=== PATIENT | female | born 1990 | race Caucasian/White ===

== ENCOUNTER 2017-08-26 06:36 | Inpatient (IN) | payer OTHER ==
[2017-08-26] MEDS ORDERED: LACTATED RINGERS 1,000 ML ONE (07:25)
[2017-08-26] MEDS ORDERED: XYLOCAINE 2% INFILTRATI ONE ×3 (07:35→12:42)
[2017-08-26] MEDS ORDERED: ePHEDrine SULFATE IV PRN (07:35)
[2017-08-26] MEDS ORDERED: PITOCin/NS 20 UNIT/1000ML DRIP 20,000 MILLIUNITS/1,000 ML BAG IV ONE (07:36)
[2017-08-26] MEDS ORDERED: LACTATED RINGERS 1,000 ML IV SCH (08:00)
[2017-08-26] MEDS ORDERED: PITOCin/NS 20 UNIT/1000ML DRIP 20 UNITS/1,000 ML BAG IV SCH (08:00)
--- NOTE | 2017-08-26 08:09 | History and Physical Report ---
History of Present Illness Date of examination: 08/26/17 Date of admission: 08/26/17 06:53 Chief complaint: Labor History of present illness: 27 year old presents to L&D in active labor at term. Patient denies leaking of fluid or vaginal bleeding. Patient reports active movement. 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 denies: smoking, alcohol abuse, prescription drug abuse, IV drug use - Obstetrical History Expected Date of Delivery: 08/31/17 Actual Gestation: 39 Week(s) 2 Day(s) : 2 Para: 1 Hx # Term Pregnancies: 1 Number of Pregnancies: 0 Spontaneous Abortions: 0 Induced : 0 Number of Living Children: 1 Medications and Allergies Allergies Allergy/AdvReac Type Severity Reaction Status Date / Time No Known Allergies Allergy Unverified 08/26/17 06:53 Active Meds: Active Medications Ephedrine Sulfate (Ephedrine Sulfate) 10 mg IV Q2M PRN PRN Reason: Hypotension Lactated Ringer's (Lactated Ringers) 1,000 mls @ 125 mls/hr IV DIRECT VA Oxytocin/Sodium Chloride (Pitocin/Ns 20 Unit/1000ml Drip) 20 units in 1,000 mls @ 125 mls/hr IV DIRECT VA Mineral Oil (Mineral Oil) 30 ml PO QHS PRN PRN Reason: Constipation Review of Systems All systems: negative (regular contractions since 04:00 am today) - Vital Signs Vital signs: Vital Signs Pulse Pulse Ox 103 H 99 08/26/17 07:03 08/26/17 07:03 Temp Pulse Resp BP Pulse Ox 97.4 F L 106 H 18 115/76 96 08/26/17 07:16 08/26/17 08:03 08/26/17 07:16 08/26/17 07:04 08/26/17 08:03 - Physical Exam Cardiovascular: Regular rate, Normal S1, Normal S2 Lungs: Positive: Clear to auscultation Abdomen: Positive: normal appearance, soft. Negative: distention, tenderness, guarding, rigidity Genitourinary (Female): Positive: normal external genitalia. Negative: perineal /vulvar lesions (no lesions seen on careful exam with bright light upon admission) Vagina: Positive: normal moisture Uterus: Positive: enlarged. Negative: tender Anus/Rectum: Positive: normal perianal skin Extremities: Positive: normal. Negative: tenderness, edema - Obstetrical FHR: category 1 Uterine Contraction Monitor Mode: External Cervical Dilatation: 6 Cervical Effacement Percentage: 90 station: -1 Uterine Contraction Pattern: Regular Uterine Contraction Intensity: Moderate Results All other labs normal. Assessment and Plan A: Term ; active labor. GBS negative. P: Admit. Anticipate .
[2017-08-26 08:11] LABS: Hematocrit 38.4 % (30.3-42.9); Hemoglobin 12.5 gm/dl (10.1-14.3); Mean Corpuscular HGB Conc 33 % (30-34); Mean Corpuscular Hemoglobin 31 pg (28-32); Mean Corpuscular Volume 96 fl (79-97); Platelet Count 193 K/mm3 (140-440); Red Blood Count 4.01 M/mm3 (3.65-5.03); Red Cell Distribution Width 13.7 % (13.2-15.2); White Blood Count 15.6 K/mm3 (4.5-11.0)
[2017-08-26] MEDS ORDERED: CYTOTEC ONE (09:38)
[2017-08-26] MEDS ORDERED: ZOFRAN IV PRN (10:15)
[2017-08-26] MEDS ORDERED: DULCOLAX PR PRN (10:15)
[2017-08-26] MEDS ORDERED: PHENERGAN PO PRN (10:15)
[2017-08-26] MEDS ORDERED: MILK OF MAGNESIA PO PRN (10:15)
[2017-08-26] MEDS ORDERED: BENADRYL PO PRN (10:15)
[2017-08-26] MEDS ORDERED: TYLENOL PO PRN (10:15)
[2017-08-26] MEDS ORDERED: PHENERGAN PR PRN (10:15)
[2017-08-26] MEDS ORDERED: TUCKS PAD TP PRN (10:15)
[2017-08-26] MEDS ORDERED: NORCO 5/325 PO PRN (10:15)
--- NOTE | 2017-08-26 10:35 | Procedure Note ---
OB Delivery Note - Vaginal Delivery position: OA Intrapartum events: shoulder dystocia (45 secs) Delivery induction: none Delivery augmentation: rupture of membranes (AROM @ 0921; light meconium) Delivery monitor: external FHT, external uterine Route of delivery: Delivery placenta: spontaneous (@ 0933) Delivery cord: 3 umbilical vessels Episiotomy: none Delivery laceration: 2nd degree (perineal) Delivery repair: vicryl Anesthesia: local Delivery comments: of a vigorous term female @ 0930. After delv of head which restituted to maternal left, with gentle traction anterior shoulder not delivered and shoulder dystocia called. Shoulder dystocia resolved after 45 secs with delv of right posterior arm by KAVITHA Mckeon. Baby immediately placed on maternal abd, dried and suctioned. Umbilical cord double-clamped and cut and baby handed to NICU team for evaluation. Placenta spontaneously delivered, jaun side. Fundal massage and IV pitocin bolus initiated. Fundus firm with massage only. Moderate lochia noted. Cytotec 800mcg AR administered. Fundus F/ML/U-1. Placenta intact with 3-vessel cord. 2nd degree perineal lac noted and repaired using a 3-0 vicryl needle under local anesthesia. Pt tolerated the procedure well. Moderate perineal swelling present post repair. Ice pack applied by RN. Mom and baby [id number] in stable condition.
[2017-08-26] MEDS ORDERED: SODIUM CHLORIDE FLUSH SYRINGE 10 ML IV NR (11:00)
[2017-08-26] MEDS ORDERED: CYTOTEC PR ONE (12:40)
[2017-08-26] MEDS ORDERED: DERMOPLAST TP PRN (13:49)
[2017-08-26] MEDS ORDERED: MINERAL OIL PO PRN (22:00)
[2017-08-26 22:08] LABS: Hematocrit 33.5 % (30.3-42.9); Hemoglobin 10.8 gm/dl (10.1-14.3)
[2017-08-27] MEDS: MOTRIN PO SCH ×2 (05:42)
--- NOTE | 2017-08-27 10:52 | Progress Note ---
Assessment and Plan A: PPD 2 - stable P: Discharge pt to home Follow up as needed or in 6 weeks for PP exam Subjective - Subjective Date of service: 08/27/17 Principal diagnosis: Normal Spontaneous Vaginal Delivery Patient reports: appetite normal, voiding normally, pain well controlled, ambulating normally Mcdonald: doing well Objective - Vital Signs Latest vital signs: Vital Signs Temp Pulse Resp BP BP 08/27/17 05:42 18 08/27/17 00:46 98.5 F 87 105/62 08/27/17 00:00 20 08/26/17 20:39 98.2 F 100 H 16 109/63 08/26/17 11:37 99 H 14 126/79 08/26/17 11:20 98.6 F 90 16 121/75 08/26/17 10:53 105 H 126/79 Intake and Output 08/26/17 08/27/17 08/27/17 23:59 07:59 15:59 Intake Total 780 Balance 780 Intake: Intake, Free Water 780 Other: # Voids Void 1 1 - Exam Narrative Exam: Moderate vulva and perineal swelling present Breasts: Present: normal Cardiovascular: Present: Regular rate, Normal S1, No murmurs Lungs: Present: Clear to auscultation, Normal air movement Abdomen: Present: normal appearance, soft Vulva: both: laceration/episiotomy (edematous) Uterus: Present: normal, firm, fundal height below umbilicus, other (midline) Extremities: Present: normal Deep Tendon Reflex Grade: Normal +2
--- NOTE | 2017-08-27 10:59 | Discharge Summary ---
Providers - Providers Date of Admission: 08/26/17 06:53 Date of discharge: 08/27/17 Attending physician: KEM REBOLLEDO MD Primary care physician: KEM REBOLLEDO MD Hospitalization Reason for admission: active labor, IUP at term Delivery: Episiotomy: none Laceration: 2nd degree (perineal) complications: perineal laceration (2nd degree) Discharge diagnosis: IUP at term delivered [place] baby: female Hospital course: Uncomplicated Condition at discharge: Stable Disposition: DC-01 TO HOME OR SELFCARE Plan - Discharge Medications Prescriptions: Ibuprofen [Motrin 600 MG tab] 600 mg PO Q6H #30 tablet - Provider Discharge Summary Activity: routine, no sex for 6 weeks, no heavy lifting 4 weeks, no strenuous exercise Diet: routine Instructions: routine Additional instructions: [] Smoking cessation referral if applicable(refer to patient education folder for contact #) [] Refer to [facility]'s [facility] Booklet Call your doctor immediately for: * Fever > 100.5 * Heavy vaginal bleeding ( >1 pad per hour) * Severe persistent headache * Shortness of breath * Reddened, hot, painful area to leg or breast * Drainage or odor from incision. * Keep incision clean and dry at all times and follow doctor's instructions regarding bathing/showering - Follow up plan Follow up: KEM REBOLLEDO MD [Primary Care Provider] - 7 Days
[2017-08-27 17:36] VITALS: BP 116/74
== END 2017-08-27 17:00 | disposition home or self-care (01) | DRG 775 ==
LOC: TRG 06:36 → LD 06:53 → OB 11:17
PROVIDERS: ADMIT Obstetrics & Gynecology; ATTEND Obstetrics & Gynecology
PROC: 10E0XZZ Delivery of Products of Conception, External Approach (ICD-10-PCS; principal; 2017-08-26)
PROC: 0KQM0ZZ Repair Perineum Muscle, Open Approach (ICD-10-PCS; 2017-08-26)
PROC: 10907ZC Drainage of Amniotic Fluid, Therapeutic from Products of Conception, Via Natural or Artificial Opening (ICD-10-PCS; 2017-08-26)
DX: O66.0 Obstructed labor due to shoulder dystocia (principal); O77.0 Labor and delivery complicated by meconium in amniotic fluid; O70.1 Second degree perineal laceration during delivery; Z37.0 Single live birth; Z3A.39 39 weeks gestation of pregnancy
CPT/HCPCS: 36415; 85014; 85018; 85027; 86850; 86900; 86901; J2590; J7120